=== PATIENT | male | born 1965 | race Caucasian/White ===

== ENCOUNTER 2019-07-21 06:45 | Day surgery (SDC) | payer OTHER ==
[~2019-07-21] VITALS: Ht 175.3 cm; Wt 81.6 kg
[2019-07-21] MEDS ORDERED: fentaNYL 0.05 MG/ML VIAL ONE (07:45)
[2019-07-21] MEDS ORDERED: LIDOCAINE 2% 100 MG/5 ML UJET TP ONE (07:45)
[2019-07-21] MEDS ORDERED: fentaNYL 0.05 MG/ML VIAL IVP ONE (08:16)
== END 2019-07-21 09:02 | disposition home or self-care (01) ==
LOC: MDS 06:45 → MMU 06:46 → MDS 09:02
PROVIDERS: ATTEND Internal Medicine Gastroenterology
DX: Z12.11 Encounter for screening for malignant neoplasm of colon (principal); E11.9 Type 2 diabetes mellitus without complications; Z79.84 Long term (current) use of oral hypoglycemic drugs; Z79.899 Other long term (current) drug therapy; K57.30 Diverticulosis of large intestine without perforation or abscess without bleeding; I10 Essential (primary) hypertension; E78.5 Hyperlipidemia, unspecified
CPT/HCPCS: 45378; J3010